=== PATIENT | female | born 1985 | race African-American/Black ===

== ENCOUNTER 2020-11-05 16:45 | Emergency (ER) | payer BC ==
[~2020-11-05] VITALS: Ht 165.1 cm; Wt 143.0 kg
[2020-11-05] MEDS ORDERED: TRAM100C3 PO (16:54)
[2020-11-05] MEDS ORDERED: IBUP-516 PO (16:54)
[2020-11-05] MEDS ORDERED: NAPR-677 PO (16:54)
[2020-11-05] MEDS ORDERED: ACCUTANE (16:54)
[2020-11-05] MEDS ORDERED: METF500S7 PO (16:54)
[2020-11-05 19:10] LABS: BASOPHILS % 0.9 % (0.0-2.0); EOSINOPHILS % 2.4 % (0.0-5.0); HEMATOCRIT. 32.1 % (36.0-48.0); HEMOGLOBIN. 10.6 g/dL (12.0-16.0); LYMPHOCYTES % 30.2 % (20.0-50.0); MEAN CORPUSCULAR HEMOGLOBIN 27.3 pg (28.0-32.0); MEAN CORPUSCULAR VOLUME 82.9 fL (81.0-99.0); MEAN PLATELET VOLUME 7.8 fl (7.4-10.4); MONOCYTES % 6.1 % (2.0-8.0); NEUTROPHILS % 60.4 % (40.0-76.0); PLATELET 291 x1000/uL (130-400); RED BLOOD CELL COUNT 3.88 mill/uL (4.2-5.4); RED CELL DISTRIBUTION WIDTH 14.8 % (11.6-14.6)
[2020-11-05 19:17] LABS: CHLORIDE 104 mEq/L (98-107)
[2020-11-05 19:27] LABS: B-HCG QUANTITATIVE < 1 mIU/mL (<3)
[2020-11-05] MEDS ORDERED: IBUPROFEN 600MG TABLET PO ONE (20:00)
[2020-11-05] MEDS ORDERED: IBUP-2029 MT (21:35)
[2020-11-05 22:11] VITALS: BP 152/87
== END 2020-11-05 22:13 | disposition home or self-care (01) ==
LOC: ER 16:45
DX: N80.0 Endometriosis of uterus (principal); E11.9 Type 2 diabetes mellitus without complications; I10 Essential (primary) hypertension; Z79.899 Other long term (current) drug therapy
CPT/HCPCS: 36415; 76830; 76856; 80053; 81025; 84702; 85025; 86850; 86900; 99284